=== PATIENT | female | born 1990 | race Asian ===

== ENCOUNTER 2023-05-07 08:04 | Emergency (ER) | payer BC, SELFPAY ==
[2023-05-07 08:45] VITALS: BP 129/80; PULSE 78; RESP 18; TEMP 35.8; O2SAT 100
--- NOTE | 2023-05-07 08:53 | ED.URI ---
HPI - URI/Sore Throat General Chief Complaint: Upper Respiratory Infection Stated Complaint: cough,bry,sore throat,chills Time Seen by Provider: 05/07/23 08:53 Source: patient Mode of arrival: ambulatory Limitations: no limitations History of Present Illness HPI Narrative: 33-year-old female presents with complaint of nasal congestion, postnasal drainage, sore throat, cough, fatigue, chills and body aches for 1 week. Patient tested last week for RSV, COVID influenza her work and all negative. Taking Robitussin DM daily. Coughing up white phlegm. Concern congestion will settle and chest and cause pneumonia. Also feels that cough medicine is not helping with cough. All systems reviewed and negative except as noted above. Related Data Home Medications Medication Instructions Recorded Confirmed fluoxetine 40 mg capsule 40 mg PO DAILY 05/07/23 05/07/23 Allergies Allergy/AdvReac Type Severity Reaction Status Date / Time No Known Allergies Allergy Verified 05/07/23 08:57 Review of Systems Review of Systems: CONSTITUTIONAL: Denies fever, chills, or sweats. reports fatigue. EYES: Denies visual changes, redness, or discharge. ENT: Reports rhinorrhea, congestion, sore throat. Deniesotalgia. CARDIOVASCULAR: Denies chest pain, palpitations, or edema. RESPIRATORY: Reports cough, chest congestion. Denies dyspnea. GASTROINTESTINAL: Denies abdominal pain, nausea, vomiting, or diarrhea. GENITOURINARY: Denies dysuria or hematuria. SKIN: Denies rash or itching. MUSCULOSKELETAL: Denies back pain, joint pain, or myalgia. NEUROLOGIC: Denies headache, numbness, or weakness. PSYCHIATRIC: Denies anxiety or depression. All other systems reviewed are negative, except as documented in HPI. PMFSH Comments At time of signature, agree with nursing past medical, surgical, social and family history. There is no relevant family history pertinent to the presenting complaint. Exam Narrative: GENERAL: This is a well-nourished, well-developed patient, in no apparent distress. HEAD: normocephalic, atraumatic. EYES: PERRL. Sclera clear/white. Vision is grossly intact. EARS: External ears normal, auditory canals clear and without drainage, TMs normal without perforation. Hearing grossly intact. NOSE: External nose normal with clear nasal drainage, mild congestion. THROAT: Mucous membranes moist, Mild erythema postnasal drainage. NECK: Neck supple, non-tender without lymphadenopathy, masses or thyromegaly. CARDIOVASCULAR: Regular rate and rhythm without murmurs, gallops, or rubs. RESPIRATORY: Clear to auscultation. Breath sounds equal bilaterally. No wheezes, rales, or rhonchi. SKIN: warm, Dry, intact with no suspicious lesions or rash, good texture and turgor. NEURO: awake, alert, and oriented to person, place and time. There were no obvious focal neurologic abnormalities. EXTREMITIES: No joint tenderness, effusion, or edema noted. Course Course Level of Care: Express Care Visit Vital Signs Vital signs: Vital Signs Temperature 35.8 C L 05/07/23 08:45 Pulse Rate 78 05/07/23 08:45 Respiratory Rate 18 05/07/23 08:45 Blood Pressure 129/80 05/07/23 08:45 Pulse Oximetry 100 05/07/23 08:45 Oxygen Delivery Room Air 05/07/23 08:45 Temperature 35.8 C L 05/07/23 08:45 Pulse Rate 78 05/07/23 08:45 Respiratory Rate 18 05/07/23 08:45 Blood Pressure 129/80 05/07/23 08:45 Pulse Oximetry 100 05/07/23 08:45 Oxygen Delivery Room Air 05/07/23 08:45 Reviewed MDM - URI/Sore Throat MDM Narrative Medical decision making narrative: patient nontoxic. Will prescribe antibiotics due to duration of symptoms, exam findings. Patient is aware of diagnosis, understands and agrees to treatment plan. Anticipatory guidance given. Patient agrees to follow-up as directed and is aware of reasons to seek care at the emergency department. Portions of this record may have been created with voice recogniti
== END 2023-05-07 09:10 | disposition home or self-care (01) ==
PROVIDERS: Emergency Provider Nurse Practitioner Family
DX: J06.9 Acute upper respiratory infection, unspecified (principal); R05.9 Cough, unspecified; F32.9 Major depressive disorder, single episode, unspecified
CPT/HCPCS: 99203; G0463